=== PATIENT | male | born 1980 | race Caucasian/White ===

== ENCOUNTER 2019-12-31 07:06 | Emergency (ER) | payer SELFPAY ==
[2019-12-31] MEDS ORDERED: Boostrix 0.5 ML VIAL ONE (07:46)
[2019-12-31] MEDS ORDERED: Ibuprofen 800 MG TAB ONE (07:46)
[2019-12-31] MEDS ORDERED: Acetaminophen 500 MG TAB ONE (07:46)
[2019-12-31] MEDS ORDERED: Bacitracin 1 PK ONE (07:50)
== END 2019-12-31 08:24 | disposition home or self-care (01) ==
LOC: ERS 07:06
DX: T23.601A Corrosion of second degree of right hand, unspecified site, initial encounter (principal); T32.0 Corrosions involving less than 10% of body surface; Z23 Encounter for immunization; X12.XXXA Contact with other hot fluids, initial encounter
CPT/HCPCS: 16020; 90471; 90715

== ENCOUNTER 2023-03-17 12:35 | Outpatient (CLI) | payer OTHER | END 2023-03-17 12:36 | disposition home or self-care (01) | LOC: BICULT 12:35 | PROVIDERS: ATTEND Family Medicine | DX: E07.9 Disorder of thyroid, unspecified (principal) | CPT/HCPCS: 76536 ==